=== PATIENT | female | born 1965 | race Caucasian/White ===

== ENCOUNTER 2018-06-09 07:37 | Emergency (ER) | payer BC ==
[2018-06-09] MEDS ORDERED: Sodium Chloride 0.9% 1,000 ML IV SCH (07:45)
[2018-06-09 07:52] VITALS: BP 137/83
[2018-06-09] MEDS ORDERED: Ondansetron 4 MG/2 ML SDV IVPUSH ONE (08:13)
[2018-06-09] MEDS ORDERED: Ketorolac 30 MG/ML SDV IVPUSH ONE (08:13)
--- NOTE | 2018-06-09 08:14 | EDM.PDOC ---
ED HPI GENERAL MEDICAL PROBLEM - General Chief Complaint: Abdominal Pain Stated Complaint: ABDOMINAL PAIN Time Seen by Provider: 06/09/18 08:13 Source of Information: Reports: Patient - History of Present Illness INITIAL COMMENTS - FREE TEXT/NARRATIVE: HISTORY AND PHYSICAL: History of present illness: [Patient presents with intermittent abdominal pain, she had symptoms last week while at work which lasted for several hours, last night she did eat a hamburger prior to going to bed, she awoke with pain this morning in the right upper quadrant 9 out of 10 nonradiating no fever nausea vomiting chills sweats no chest pain shortness breath headache dizziness palpitation no bowel or urine symptoms Review of systems: As per history of present illness and below otherwise all systems reviewed and negative. Past medical history: As per history of present illness and as reviewed below otherwise noncontributory. Surgical history: As per history of present illness and as reviewed below otherwise noncontributory. Social history: No reported history of drug or alcohol abuse. Family history: As per history of present illness and as reviewed below otherwise noncontributory. Physical exam: HEENT: Atraumatic, normocephalic, pupils reactive, negative for conjunctival pallor or scleral icterus, mucous membranes moist, throat clear, neck supple, nontender, trachea midline. Lungs: Clear to auscultation, breath sounds equal bilaterally, chest nontender. Heart: S1S2, regular, negative for clicks, rubs, or JVD. Abdomen: Soft, nondistended, tender right upper quadrant on deep palpation, nontender right lower quadrant no guarding or rebound. Negative for masses or hepatosplenomegaly. Negative for costovertebral tenderness. Pelvis: Stable nontender. Genitourinary: Deferred. Rectal: Deferred. Extremities: Atraumatic, negative for cords or calf pain. Neurovascular unremarkable. Neuro: Awake, alert, oriented. Cranial nerves II through XII unremarkable. Cerebellum unremarkable. Motor and sensory unremarkable throughout. Exam nonfocal. Diagnostics: [CBC CMP amylase lipase troponin ]Upper quadrant limited Therapeutics: [Saline Zofran 8 mg IV Toradol 30 mg IV Cipro [place] Zofran Land diet ER referral for general surgery ] Impression: [ right upper quadrant pain ] Biliary colic Cholelithiasis Definitive disposition and diagnosis as appropriate pending reevaluation and review of above. right lower quadrant Pain Score (Numeric/FACES): 9 - Related Data Allergies Allergy/AdvReac Type Severity Reaction Status Date / Time No Known Allergies Allergy Verified 06/09/18 07:48 Home Meds: Home Meds Escitalopram [Lexapro] 10 mg PO DAILY 07/06/15 [History] Past Medical History - Past Health History Medical/Surgical History: Denies Medical/Surgical History [employer] History: Reports: Other [employer]IAN History: Musculoskeletal History: Reports: Other (See Below) Other Musculoskeletal History: knee pain Neurological History: Reports: Headaches, Chronic Psychiatric History: Reports: Anxiety, Depression - Infectious Disease History Infectious Disease History: Reports: Chicken Pox, Influenza - Past Surgical History Female Surgical History: Reports: Section Social & Family History - Family History Family Medical History: Noncontributory - Tobacco Use Smoking Status *Q: Never Smoker - Caffeine Use Caffeine Use: Reports: Coffee - Recreational Drug Use Recreational Drug Use: No ED ROS GENERAL - Review of Systems Review Of Systems: See Below ED EXAM, GENERAL - Physical Exam Exam: See Below Course - Vital Signs Last Recorded V/S: Last Vital Signs Temp 96.5 F 06/09/18 07:48 Pulse 77 06/09/18 07:48 Resp 18 06/09/18 07:48 BP 137/83 06/09/18 07:48 Pulse Ox 96 06/09/18 07:48 - Orders/Labs/Meds Orders: Active Orders 24 hr Category Date Time Status Sodium Chloride 0.9% [Normal Saline] 1,000 ml Med 06/09/18 07:45 Active IV STAT Medication Orders Sodium Chloride (Normal Saline) 1,000 mls @ 125 mls/hr IV STAT CHOCO Last Admin: 06/09/18 08:12 Dose: 125 mls/hr Labs: Laboratory Tests 06/09/18 06/09/18 06/09/18 Range/Units 07:56 08:07 08:07 WBC 8.81 (4.0-11.0) K/uL RBC 4.33 (4.30-5.90) M/uL Hgb 13.9 (12.0-16.0) g/dL Hct 40.2 (36.0-46.0) % MCV 92.8 (80.0-98.0) fL MCH 32.1 H (27.0-32.0) pg MCHC 34.6 (31.0-37.0) g/dL RDW Std Deviation 41.8 (28.0-62.0) fl RDW Coeff of Ileana 12 (11.0-15.0) % Plt Count 284 (150-400) K/uL MPV 11.10 (7.40-12.00) fL Neut % (Auto) 75.2 (48.0-80.0) % Lymph % (Auto) 17.7 (16.0-40.0) % [place] % (Auto) 6.1 (0.0-15.0) % Eos % (Auto) 0.7 (0.0-7.0) % Baso % (Auto) 0.3 (0.0-1.5) % Neut # (Auto) 6.6 H (1.4-5.7) K/uL Lymph # (Auto) 1.6 (0.6-2.4) K/uL [place] # (Auto) 0.5 (0.0-0.8) K/uL Eos # (Auto) 0.1 (0.0-0.7) K/uL Baso # (Auto) 0.0 (0.0-0.1) K/uL Nucleated RBC % 0.0 /100WBC Nucleated RBCs # 0 K/uL Sodium 136 (136-145) mmol/L Potassium 4.1 (3.5-5.1) mmol/L Chloride 103 (98-107) mmol/L Carbon Dioxide 26.7 (21.0-32.0) mmol/L BUN 21 H (7.0-18.0) mg/dL Creatinine 0.7 (0.6-1.0) mg/dL Est Cr Clr Drug Dosing 90.01 mL/min Estimated GFR (MDRD) > 60.0 ml/min Glucose 122 H (74-106) mg/dL Calcium 9.8 (8.5-10.1) mg/dL Total Bilirubin 0.3 (0.2-1.0) mg/dL AST 28 (15-37) IU/L ALT 58 (14-63) IU/L Alkaline Phosphatase 84 (46-116) U/L Troponin I < 0.050 (0.000-0.056) ng/mL Total Protein 7.7 (6.4-8.2) g/dL Albumin 3.8 (3.4-5.0) g/dL Globulin 3.9 (2.6-4.0) g/dL Albumin/Globulin Ratio 1.0 (0.9-1.6) Lipase 176 (73-393) U/L Urine Color YELLOW Urine Appearance CLEAR Urine pH 5.0 (5.0-8.0) Ur Specific [place] >= 1.030 (1.001-1.035) Urine Protein NEGATIVE (NEGATIVE) mg/dL Urine Glucose (UA) NEGATIVE (NEGATIVE) mg/dL Urine Ketones NEGATIVE (NEGATIVE) mg/dL Urine Occult Blood NEGATIVE (NEGATIVE) Urine Nitrite NEGATIVE (NEGATIVE) Urine Bilirubin NEGATIVE (NEGATIVE) Urine Urobilinogen 0.2 (<2.0) EU/dL Ur Leukocyte Esterase NEGATIVE (NEGATIVE) Meds: Medications Generic Name Dose Route Start Last Admin Trade Name Freq PRN Reason Stop Dose Admin Sodium Chloride 1,000 mls @ 125 mls/hr 06/09/18 07:45 06/09/18 08:12 Normal Saline IV 125 mls/hr STAT CHOCO Administration Discontinued Medications Generic Name Dose Route Start Last Admin Trade Name Freq PRN Reason Stop Dose Admin Ketorolac Tromethamine 30 mg 06/09/18 08:13 06/09/18 09:11 Toradol IVPUSH 06/09/18 08:14 30 mg ONETIME ONE Administration Ondansetron HCl 8 mg 06/09/18 08:13 06/09/18 09:06 Zofran IVPUSH 06/09/18 08:14 8 mg ONETIME ONE Administration Ondansetron HCl Confirm 06/09/18 09:01 Zofran Administered 06/09/18 09:02 Dose 4 mg .ROUTE .STK-MED ONE Departure - Departure Time of Disposition: 09:54 Disposition: Home, Self-Care 01 Condition: Good Clinical Impression: Cholelithiasis - Discharge Information Referrals: Samir Duong MD [Primary Care Provider] - Forms: ED Department Discharge Additional Instructions: Medication as prescribed Return if symptoms persist or worsen Follow-up with general surgery, our referral for next week provided [facility] - General Surgery Professional [address], [address] [place] [address] The following information is given to patients seen in the emergency department who are being discharged to home. This information is to outline your options for follow-up care. We provide all patients seen in our emergency department with a follow-up referral. The need for follow-up, as well as the timing and circumstances, are variable depending upon the specifics of your emergency department visit. If you don't have a primary care physician on staff, we will provide you with a referral. We always advise you to contact your personal physician following an emergency department visit to inform them of the circumstance of the visit and for follow-up with them and/or the need for any referrals to a consulting specialist. The emergency department will also refer you to a specialist when appropriate. This referral assures that you have the opportunity for follow-up care with a specialist. All of these measure are taken in an effort to provide you with optimal care, which includes your follow-up. Under all circumstances we always encourage you to contact your private physician who remains a resource for coordinating your care. When calling for follow-up care, please make the office aware that this follow-up is from your recent emergency room visit. If for any reason you are refused follow-up, please contact the [facility] emergency department at and asked to speak to the emergency department charge nurse. - My Orders Last 24 Hours: My Active Orders 06/09/18 07:45 Sodium Chloride 0.9% [Normal Saline] 1,000 ml IV STAT - Assessment/Plan Last 24 Hours: My Active Orders 06/09/18 07:45 Sodium Chloride 0.9% [Normal Saline] 1,000 ml IV STAT
[2018-06-09 08:42] LABS: CHLORIDE,CL 103 mmol/L (98-107); SODIUM,NA 136 mmol/L (136-145)
[2018-06-09] MEDS ORDERED: Ondansetron 4 MG/2 ML SDV ONE (09:01)
--- NOTE | 2018-06-09 09:44 | US ---
INDICATION: RUQ PAIN HISTORY: Right upper quadrant abdominal pain. COMPARISON: None. TECHNIQUE: Ultrasound of the abdomen limited. FINDINGS: Pancreas is normal where visualized. No peripancreatic fluid collections are seen. Gallstones. Gallstones were not mobile on this sonogram. Positive sonographic Hilton`s sign. No gallbladder wall thickening. No pericholecystic fluid. The extrahepatic common duct measures 3 mm at the qi hepatis. Right kidney measures 11.5 cm in length. No hydronephrosis or solid mass. No perinephric fluid collection. Normal hepatic morphology. No perihepatic ascites. No solid hepatic mass by ultrasound. IMPRESSION: 1. Cholelithiasis without gallbladder wall thickening or pericholecystic fluid. 2. The patient had a positive sonographic Hilton`s sign by the performing technologist. This raises the suspicion for cholecystitis. 3. Suggest correlation with physical exam findings and the presence or absence of leukocytosis/elevated liver transaminases. Dictated by Horacio Dee MD @ 06/09/2018 9:43:52 AM Dictated by: Horacio Dee MD @ 06/09/2018 09:44:01 (Electronically Signed)
== END 2018-06-09 11:02 | disposition home or self-care (01) ==
LOC: MW.ED 07:37
DX: K80.70 Calculus of gallbladder and bile duct without cholecystitis without obstruction (principal); F41.9 Anxiety disorder, unspecified; F32.9 Major depressive disorder, single episode, unspecified; Z79.899 Other long term (current) drug therapy
CPT/HCPCS: 36415; 76705; 80053; 81003; 83690; 84484; 85025; 96361; 96374; 96375; 99284; J1885; J2405; J7040